=== PATIENT | female | born 1955 | race Caucasian/White ===

== ENCOUNTER 2018-04-18 20:03 | Emergency (ER) | payer OTHER ==
[~2018-04-18] VITALS: Ht 160 cm; Wt 72.6 kg
[~2018-04-18 20:03] MED LIST: AMITRIPTYLINE H25 M1 PO; CALCIUM + D 6001 TAB PO; CITALOPRAM HYDR10 MG PO; HYDROCODONE/ACE1 TA1 PO; SUMATRIPTAN SU100 MG PO; ZYRTEC ALLERGY10 MG PO
[2018-04-18 22:26] LABS: ABSOLUTE BASOPHIL COUNT 0 /CUMM (0.0-0.2); ABSOLUTE EOSINOPHIL COUNT 0.3 /CUMM (0.0-0.7); ABSOLUTE GRANULOCYTE CT 6.4 /CUMM (1.4-6.5); ABSOLUTE LYMPH COUNT 1.3 /CUMM (1.2-3.4); ABSOLUTE MONOCYTE COUNT 0.9 /CUMM (0.10-0.60); BASOPHIL % 0.4 % (0.0-2.0); EOSINOPHIL % 3.5 % (0-5); GRANULOCYTE % 71.6 % (42.2-75.2); HEMATOCRIT 33.8 % (37-47); MEAN CORPUSCULAR VOLUME 84.9 FL (81.0-99.0); MEAN PLATELET VOLUME 7.4 FL (7.4-10.4); PLATELET COUNT 383 /CUMM (130-400); RBC DISTRIBUTION WIDTH 12.6 % (11.5-14.5); RED BLOOD CELL CT 3.98 /CUMM (4.20-5.40); WHITE BLOOD CELL COUNT 8.9 /CUMM (4.8-10.8)
--- NOTE | 2018-04-18 22:55 | RADIOLOGY REPORT ---
EXAMINATION: XR CHEST CLINICAL INFORMATION: Right-sided rib pain. COMPARISON: CT chest 05/13/[address] abdomen and pelvis 11/18/2013. TECHNIQUE: 2 views of the chest were obtained. FINDINGS: No significant abnormality is noted involving the heart, lungs, mediastinum, bony thorax or soft tissues. Some minimal bibasilar atelectasis is noted. IMPRESSION: No acute intrathoracic disease. Bibasilar atelectasis.
--- NOTE | 2018-04-19 00:56 | ED CARDIAC/CP/PALPITATIONS ---
History of Present Illness General Chief Complaint: General Adult Stated Complaint: RIGHT SIDE PAIN WHEN I BREATHE IN PER PT Source: patient Exam Limitations: no limitations Vital Signs & Intake/Output Vital Signs & Intake/Output Vital Signs Date Time Temp Pulse Resp B/P B/P Pulse O2 O2 Flow FiO2 Mean Ox Delivery Rate 04/19 0208 99.7 90 20 128/73 95 Room Air 04/19 0025 97 Room Air 04/18 2352 98.8 88 20 144/71 95 Room Air 04/18 2100 98.6 98 18 123/74 95 Room Air ED Intake and Output 04/19 0000 04/18 1200 Intake Total Output Total Balance Patient 160 lb Weight Weight Estimated Measurement Method Allergies Coded Allergies: oxycodone (Mild, NAUSEA 03/27/18) Uncoded Allergies: SOME ANETHESIA (Mild, NAUSEA 11/14/12) SEASONAL (12/19/14) Reconcile Medications AMITRIPTYLINE HCL (Amitriptyline Hydrochloride) 25 MG TABLET 0.5 TAB PO QPM PRN VAGINAL NERVE PAIN (Reported) Calcium/Vitamin D (Calcium + D) (Unknown Strength) TAB (Unknown Dose) PO DAILY SUPPLEMENT (Reported) CETIRIZINE HCL (Zyrtec) 10 MG CAPSULE 1 CAP PO DAILY ALLERGIES (Reported) Citalopram Hydrobromide 10 MG TAB 0.5 TAB PO DAILY IRRITABILITY (Reported) HYDROCODONE/ACETAMINOPHEN (Hydrocodon-Acetaminophen 5-325) 5 MG-325 MG TABLET 1-2 TAB PO Q8P PRN PAIN Sumatriptan Succinate 100 MG TABLET 1 TAB PO AD PRN MIGRAINES (Reported) may repeat in 2 hours; do not exceed 200 mg in 24 hours Triage Note: RECEIVED 62 YO FEMALE C/O RIGHT LATERAL RIBCAGE AREA PAIN, STARTED TODAY APPROX 12 NOON TODAY. PAIN GETS WORSE WITH INHALATION. NO ACUTE SOB OR CHEST PAIN. PT S/P ORTHOPEDIC SURGURY LAST WEEK FOR SHATTERED LEFT ELBOW. + ORIF L ELBOW LAST MONDAY, D/C'D MONDAY. Triage Nurses Notes Reviewed? yes Onset: Abrupt Duration: day(s): (1), constant Timing: recent history HPI: 62-year-old female that had surgery on left elbow last week comes into the emergency room with right rib pain and shortness of breath. Pain is worse with a deep breath. She denies any fever chills coughing. Symptoms began today and got progressively worse. She was sent in for concern for possible pulmonary embolism. (Cooper Bateman) Past History Travel History Traveled to [place] past 21 day No Medical History Any Pertinent Medical History? see below for history Neurological: migraine, restless leg syndrome EENT: allergies Cardiovascular: NONE Respiratory: NONE Gastrointestinal: NONE Hepatic: NONE Renal: nephrolithiasis Musculoskeletal: fracture, osteoarthritis, sciatica, ARTHIRITIS IN SACRAL SACRAL ILIAC JOINT R/L ARM FX R RIB FX FINGER/KNUCKLE FX Psychiatric: anxiety, insomnia Endocrine: NONE Blood Disorders: NONE Cancer(s): NONE EMT DRIVER/Reproductive: NONE Surgical History Surgical History: multiple orthopedic procedures Psychosocial History What is your primary language Jamaican Tobacco Use: Quit >30 days ago Family History Hx Contributory? No (Cooper Bateman) Review of Systems Review of Systems Constitutional: Reports: no symptoms. EENTM: Reports: no symptoms. Respiratory: Reports: see HPI. Cardiovascular: Reports: see HPI. GI: Reports: no symptoms. Genitourinary: Reports: no symptoms. Musculoskeletal: Reports: no symptoms. Skin: Reports: no symptoms. Neurological/Psychological: Reports: no symptoms. Hematologic/Endocrine: Reports: no symptoms. Immunologic/Allergic: Reports: no symptoms. All Other Systems: Reviewed and Negative (Cooper Bateman) Physical Exam Physical Exam General Appearance: well developed/nourished, no apparent distress, alert, awake Head: atraumatic, normal appearance Eyes: Bilateral: normal appearance. Ears, Nose, Throat: normal ENT inspection, hearing grossly normal Neck: normal inspection Respiratory: normal breath sounds, chest non-tender, no respiratory distress Cardiovascular: regular rate/rhythm Neurologic/Psych: awake, alert Core Measures ACS in differential dx? No CVA/TIA Diagnosis No Sepsis Present: No Sepsis Focused Exam Completed? No (Cooper Bateman) Progress Differential Diagnosis: AMI, musculoskeletal pain, myocarditis, pancreatitis, pericarditis, pneumonia, pneumothorax, pulmonary embolism Plan of Care: Orders Procedure Date/time Status TROPONIN LEVEL 04/19 0056 Complete EKG 04/19 0056 Active TROPONIN LEVEL 04/18 2147 Complete D-DIMER 04/18 2147 Complete COMPREHENSIVE METABOLIC PANEL 04/18 2147 Complete CBC WITHOUT DIFFERENTIAL 04/18 2147 Complete EKG 04/18 2147 Active Current Medications Sig/Brannon Start time Last Medication Dose Stop Time Status Admin Hydromorphone HCl 1 MG ONCE ONE 04/19 230 UNVr (Dilaudid) 04/19 231 Ketorolac 30 MG ONCE ONE 04/19 230 UNVr Tromethamine 04/19 231 (Toradol) Laboratory Tests 04/19/18 0100: Troponin I < 0.01 04/18/185: Anion Gap 7, Estimated GFR > 60, BUN/Creatinine Ratio 21.4, Glucose 121 H, Calcium 9.1, Total Bilirubin 0.3, AST 35, ALT 48, Alkaline Phosphatase 81, Troponin I < 0.01, Total Protein 6.3, Albumin 3.5, Globulin 2.8, Albumin/ Globulin Ratio 1.3, D-Dimer High Sensitivty 951 H, CBC w Diff NO MAN DIFF REQ, RBC 3.98 L, MCV 84.9, MCH 28.0, MCHC 33.0, RDW 12.6, MPV 7.4, Gran % 71.6, Lymphocytes % 14.6 L, Monocytes % 9.9 H, Eosinophils % 3.5, Basophils % 0.4, Absolute Granulocytes 6.4, Absolute Lymphocytes 1.3, Absolute Monocytes 0.9 H, Absolute Eosinophils 0.3, Absolute Basophils 0 Diagnostic Imaging: Viewed by Me: Radiology Read, CT Scan. Discussed w/RAD: Radiology Read, CT Scan. Radiology Impression: PATIENT: MITESH RAMIREZ PRESENT AGE: 62 PATIENT ACCOUNT NO: [id number] : 54 LOCATION: [facility] ORDERING PHYSICIAN: Cooper PEREZ SERVICE DATE: 04/18/18 EXAM TYPE: RAD - XRY-CHEST XRAY, TWO VIEWS EXAMINATION: XR CHEST CLINICAL INFORMATION: Right- sided rib pain. COMPARISON: CT chest 05/13/[address] abdomen and pelvis 2013. TECHNIQUE: 2 views of the chest were obtained. FINDINGS: No significant abnormality is noted involving the heart, lungs, mediastinum, bony thorax or soft tissues. Some minimal bibasilar atelectasis is noted. IMPRESSION: No acute intrathoracic disease. Bibasilar atelectasis. DICTATED BY: Arturo Ho MD DATE/TIME DICTATED:04/18/182245 BOTTLE CLEANER:LAVERN DATE/TIME TRANSCRIBED:04/18/182245 CONFIDENTIAL, DO NOT COPY WITHOUT APPROPRIATE AUTHORIZATION. <Electronically signed in Other Vendor System> SIGNED BY: Arturo Ho MD 04/18/182254 Initial ED EKG: normal sinus rhythm, rate (51) Hand-Off Endorsed To: Roscoe Bell MD (Cooper Bateman) Radiology Impression: 1. No evidence of pulmonary embolism. 2. Bibasilar dependent atelectasis at lung bases. (Roscoe Bell MD) Departure Departure Condition: Stable Referrals: Ammon Gu MD (PCP/Family) Departure Forms: Customer Survey General Discharge Information (Cooper Bateman) Departure Time of Disposition: 216 Disposition: HOME OR SELF CARE Clinical Impression Primary Impression: Acute chest wall pain PA/CREDIT NEGOTIATOR Co-Sign Statement Statement: ED Attending supervision documentation- x I saw and evaluated the patient. I have also reviewed all the pertinent lab results and diagnostic results. I agree with the findings and the plan of care as documented in the PA's/CREDIT NEGOTIATOR's documentation. [] I have reviewed the ED Record and agree with the PA's/CREDIT NEGOTIATOR's documentation. [] Additions or exceptions (if any) to the PAs/CREDIT NEGOTIATOR's note and plan are summarized below: [] (Roscoe Bell MD) Critical Care Note Critical Care Note Critical Care Time: non-applicable (Cooper Bateman)
--- NOTE | 2018-04-19 02:01 | CT SCAN REPORT ---
EXAMINATION: CT ANGIOGRAM OF THE CHEST WITH AND WITHOUT CONTRAST (CT PULMONARY ANGIOGRAM FOR PE) CLINICAL INFORMATION: RIGHT RIB PAIN/SOB, elevated DIMER COMPARISON: Chest x-ray April 18, [address] chest May 13, 2011. TECHNIQUE: Prior to contrast administration, noncontrast localization images were obtained. Subsequently, multidetector volumetric imaging was performed from the thoracic inlet to below the diaphragms following the administration of 60 mL Optiray 320 intravenous contrast. No contrast reaction reported. Sagittal, coronal, and MIP oblique sagittal reformatted images were obtained on the CT workstation, uploaded to PACS, and reviewed. Total exam dose-length product 365.71 mGy-cm. FINDINGS: QUALITY OF STUDY/CONTRAST BOLUS: Satisfactory PULMONARY ARTERIES: No central or segmental pulmonary emboli. THORACIC AORTA: No aneurysm or dissection. LUNG: There is dependent bibasilar atelectasis. Remainder the lungs are normally aerated. The central bronchial airways are open. There is no bronchiectasis. No interstitial lung disease. PLEURA: No pleural effusion or pneumothorax. MEDIASTINUM: Normal heart size. No pericardial effusion. No hilar or mediastinal lymphadenopathy. No evidence of septal bowing or right heart strain. CHEST WALL/AXILLA: No axillary or internal mammary lymphadenopathy. OSSEOUS STRUCTURES: No acute or suspicious osseous abnormality. There is deformity from old healed fractures of the right lateral third through fifth ribs and the left fourth and fifth rib. UPPER ABDOMEN: Unremarkable. No reflux of contrast into the hepatic veins to suggest elevated right heart pressures. IMPRESSION: 1. No evidence of pulmonary embolism. 2. Bibasilar dependent atelectasis at lung bases. VTE: negative
[2018-04-19 02:08] VITALS: BP 128/73
== END 2018-04-19 03:08 ==
LOC: ERH 20:03
PROVIDERS: Physician Assistant Medical
DX: R07.89 Other chest pain (principal); R06.02 Shortness of breath; Z87.891 Personal history of nicotine dependence
CPT/HCPCS: 71046; 93005; 93010; 96374; 96375; J1885